=== PATIENT | male | born 1980 | race Caucasian/White ===

== ENCOUNTER 2018-01-02 14:13 | Emergency (ER) | payer OTHER ==
[~2018-01-02] VITALS: Ht 175.3 cm; Wt 87.1 kg
[2018-01-02 15:10] VITALS: BP 135/77
== END 2018-01-02 15:13 | disposition home or self-care (01) ==
LOC: ED 15:10
DX: L03.114 Cellulitis of left upper limb (principal); Z88.8 Allergy status to other drugs, medicaments and biological substances
CPT/HCPCS: 99281